=== PATIENT | male | born 1945 ===

== ENCOUNTER 2017-01-28 15:21 | Observation (INO) | payer MEDICARE ==
--- NOTE | 2017-01-28 16:02 | ED PDOC ---
HPI: Psych/Substance Abuse Time Seen by Provider: 01/28/17 15:29 Chief Complaint (Nursing): Alcohol Ingestion Chief Complaint (Provider): Alcohol Ingestion ED Caveat: Intoxicated Additional Complaint(s): 15:29 Azael Navarro, 71 year old male presents to the ED on 01/26/17. The patient was found outside of a school, sleeping on the sidewalk. The patient admits to drinking alcohol. The patient has no other complaints. Past Medical History Reviewed: Historical Data, Nursing Documentation, Vital Signs Vital Signs: Last Vital Signs Temp 98.3 F 01/28/17 15:25 Pulse 114 H 01/28/17 15:25 Resp 20 01/28/17 15:25 BP 148/85 01/28/17 15:25 Pulse Ox 96 01/28/17 15:25 - Medical History PMH: No Chronic Diseases - Family History Family History: States: Unknown Family Hx - Home Medications Home Medications: Ambulatory Orders Medication Instructions Recorded No Known Home Med 01/28/17 - Allergies Allergies/Adverse Reactions: Allergies Allergy/AdvReac Type Severity Reaction Status Date / Time No Known Allergies Allergy Verified 01/28/17 15:25 Review of Systems Review Of Systems: ROS cannot be obtained secondary to pt's inabilty to answer questions. (impaired due to ETOH intoxication) Physical Exam - Reviewed Nursing Documentation Reviewed: Yes Vital Signs Reviewed: Yes - Physical Exam Appears: Positive for: Non-toxic, No Acute Distress Head Exam: Positive for: ATRAUMATIC, NORMOCEPHALIC Skin: Positive for: Normal Color, Warm, Dry Eye Exam: Positive for: Normal appearance ENT: Positive for: Normal ENT Inspection Neck: Positive for: Normal Cardiovascular/Chest: Positive for: Regular Rate, Rhythm Respiratory: Positive for: Normal Breath Sounds. Negative for: Respiratory Distress Neurologic/Psych: Positive for: Motor/Sensory Deficits (slurred speech), Gait ( unsteady), Other (EtOH on breath) - Laboratory Results Result Diagrams: 01/28/17 16:11 01/28/17 16:11 - ECG O2 Sat by Pulse Oximetry: 96 (RA) Pulse Ox Interpretation: Normal Medical Decision Making Medical Decision Makin:29 Initial Impression: Alcohol Intoxication Initial Plan: * Electrocardiogram STAT * Alcohol Serum STAT * COMP Metabolic Panel STAT * Drug Screen, Urine STAT * CBC (with Differential) STAT * Finger Stick [Glucose, Blood, POC] STAT * Admit to Hospital Routine Scribe Attestation: Documented by Nargis Smalls, acting as a scribe for Solis Bajwa PA-C. Provider Scribe Attestation: All medical record entries made by the Scribe were at my direction and personally dictated by me. I have reviewed the chart and agree that the record accurately reflects my personal performance of the history, physical exam, medical decision making, and the department course for this patient. I have also personally directed, reviewed, and agree with the discharge instructions and disposition. ED OBSERVATION Date of observation admission: 01/28/17 Time of observation admission: 15:29 - Observation admission statement Patient is being placed in observation because:: Time-extensive ED evaluation. - Goals of Observation Goals of observation are:: Results of ED workup, Evaluation, Eventual Disposition. - Progress Note Progress Note: 01/28/17 17:14 ETOH 326 01/28/17 18:49 As per technical cable jointer pt. had 1 episode of non-bloody vomiting. Repeat HR: 120. IV line ordered. D-Dimer ordered. CXR ordered. 01/28/17 20:10 D-dimer 1.43. CTA chest w/ contrast ordered. Pt. placed on monitor. 2300 Pt. awake and alert. Reports that he has been having some chest pain for several days but no SOB. Pt. in no distress. Lungs clear b/l. Cardiac: + tachycardic. CTA chest: Evaluation limited due to to technique/timing of imaging. There is no filling defect in the main/central pulmonary arteries. However, lobar/segmental/subsegmental arterial evaluation is limited by technique and there are multiple locations of question of filling defect versus artifact. VQ scan recommended. Case dw Dr. Simmons and agrees with admission. Lovenox 75mg SC given. Case ingrid Cueto [employer] PROGRAM COORDINATOR and arrangements made for admission. Disposition - Clinical Impression Clinical Impression: Chest pain - Patient ED Disposition Is Patient to be Admitted: Yes - Disposition Disposition Time: 23:00 Condition: STABLE
[2017-01-28 16:19] LABS: BASO # 0.1 K/uL (0.0-0.2); BASO % 0.8 % (0.0-2.0); EOS # 0.1 K/uL (0.0-0.7); EOS % 0.5 % (0.0-4.0); HEMOGLOBIN 15.2 g/dL (12.0-18.0); LYMPH # 2.2 K/uL (1.0-4.3); LYMPH % 21.3 % (20.0-40.0); MEAN CELL VOLUME 87.9 fl (80.0-94.0); MEAN CORPUSCULAR HEMOGLOBIN 29.7 pg (27.0-31.0); MEAN CORPUSCULAR HGB CONC 33.7 g/dL (33.0-37.0); MEAN PLATELET VOLUME 6.8 fl (7.2-11.7); MONO # 1.2 K/uL (0.0-0.8); MONO % 11.4 % (0.0-10.0); RBC 5.11 Mil/uL (4.40-5.90); RED CELL DISTRIBUTION WIDTH 14.8 % (11.5-14.5); WHITE BLOOD COUNT 10.6 K/uL (4.8-10.8)
[2017-01-28 16:48] LABS: ALB/GLOB RATIO 1.2 (1.0-2.1); ALBUMIN 3.7 g/dL (3.5-5.0); ALT/SGPT 45 U/L (21-72); AST/SGOT 44 U/L (17-59); BLOOD UREA NITROGEN 14 mg/dl (9-20); CALCIUM 8.6 mg/dL (8.4-10.2); GFR AFRICAN-AMERICAN > 60; GFR NON-AFRICAN AMERICAN > 60
[2017-01-28] MEDS ORDERED: Iodixanol 320 MG/ML 100 ML BOTTLE IV ONE (20:59)
[2017-01-28] MEDS ORDERED: Sodium Chloride 0.9% 50 ML IV ONE (21:00)
--- NOTE | 2017-01-28 21:40 | CT ---
EXAM: CT Angiography Chest With Intravenous Contrast CLINICAL HISTORY: 71 years old, male; Signs and symptoms; Tachypnea and other: Elevated d-dimer; Additional info: Tachycardic, elevated d-dimer. Sent carlee Alcazar. Doc. With request TECHNIQUE: Axial computed tomographic angiography images of the chest with intravenous contrast using pulmonary embolism protocol. This CT exam was performed using one or more of the following dose reduction techniques: automated exposure control, adjustment of the mA and/or kV according to patient size, and/or use of iterative reconstruction technique. MIP reconstructed images were created and reviewed. Coronal and sagittal reformatted images were created and reviewed. CONTRAST: 80 mL of administered intravenously. COMPARISON: No relevant prior studies available. FINDINGS: Pulmonary arteries: Evaluation limited due to to technique/timing of imaging. There is no filling defect in the main/central pulmonary arteries. However, lobar/segmental/subsegmental arterial evaluation is limited by technique and there is question of filling defect versus artifact. For example, involving the left lower lobe, series 3 images 46 through 56. Finding may represent true filling defect/pulmonary embolism. Aorta: Atherosclerosis. No thoracic aortic aneurysm. Lungs: Atelectasis. Granuloma in the right middle lobe. Pleural space: No significant effusion. No pneumothorax. Heart: Top normal in size. No significant pericardial effusion. No evidence of RV dysfunction. Bones: Degenerative changes. Lymph nodes: Shotty nodes. Esophageal wall appears thickened. Likely fatty infiltration of the liver. IMPRESSION: Evaluation limited due to to technique/timing of imaging. There is no filling defect in the main/central pulmonary arteries. However, lobar/segmental/subsegmental arterial evaluation is limited by technique and there are multiple locations of question of filling defect versus artifact. For example, involving the left lower lobe, series 3 images 46 through 56. Finding may represent true filling defect/pulmonary embolism. Further evaluation with nuclear V/Q scan or followup imaging with improved technique when patient is again able to receive contrast will aid in evaluation. Atelectasis. Granuloma in the right middle lobe. Esophageal wall appears thickened. Likely fatty infiltration of the liver.
[2017-01-28] MEDS ORDERED: Enoxaparin 80 mg Syringe SC STA (21:57)
[2017-01-28] MEDS: Sodium Chloride 0.9% 1,000 ML IV SCH (22:55)
[2017-01-29 01:30] LABS: BARBITURATES, UR NEGATIVE (NEGATIVE); BENZODIAZEPINES, UR NEGATIVE (NEGATIVE); OPIATES, UR NEGATIVE (NEGATIVE); PHENCYCLIDINE, UR NEGATIVE (NEGATIVE)
[2017-01-29 07:23] LABS: BASO % 0.5 % (0.0-2.0); EOS # 0.1 K/uL (0.0-0.7); EOS % 0.8 % (0.0-4.0); LYMPH # 2.7 K/uL (1.0-4.3); LYMPH % 30.9 % (20.0-40.0); MEAN CELL VOLUME 87.4 fl (80.0-94.0); MEAN CORPUSCULAR HEMOGLOBIN 29.3 pg (27.0-31.0); MEAN CORPUSCULAR HGB CONC 33.5 g/dL (33.0-37.0); MEAN PLATELET VOLUME 7.2 fl (7.2-11.7); MONO # 0.7 K/uL (0.0-0.8); MONO % 8.4 % (0.0-10.0); NEUT # 5.1 K/uL (1.8-7.0); NEUT % 59.4 % (50.0-75.0); NRBC % 0.1 % (0.0-0.0); RBC 4.77 Mil/uL (4.40-5.90); RED CELL DISTRIBUTION WIDTH 14.9 % (11.5-14.5); WHITE BLOOD COUNT 8.6 K/uL (4.8-10.8)
--- NOTE | 2017-01-29 07:25 | CP.PCM.HP ---
History of Present Illness - History of Present Illness History of Present Illness: pt admitted for tachycardia, dyspnea nad r/o PE. ct chest nonspecific filling deficit noted w/o definite clot. pt states felt these s/s x 1 wk. no f/c, n/v/ d. bw noted. etoh noted. found sleeping infront on [place]. no reported med/surg hx. vqsca nd and ble dopplar and pulm consult pending. pt eating well and in no distress. on lovenox Present on Admission - Present on Admission Any Indicators Present on Admission: No Review of Systems - Respiratory Respiratory: Dyspnea on Exertion Past Patient History - Past Medical History & Family History Past Medical History?: No - Past Social History Smoking Status: Never Smoked - CARDIAC Hx Cardiac Disorders: No - MUSCULOSKELETAL/RHEUMATOLOGICAL Hx Falls: No - PSYCHIATRIC Hx Substance Use: No - SURGICAL HISTORY Hx Surgeries: No - ANESTHESIA Hx Anesthesia: No Hx Anesthesia Reactions: No Hx Malignant Hyperthermia: No Has any member of the family had a problem w/ anesthesia?: No Meds Allergies/Adverse Reactions: Allergies Allergy/AdvReac Type Severity Reaction Status Date / Time No Known Allergies Allergy Verified 01/28/17 15:25 Physical Exam - Constitutional Appears: Well, Non-toxic, No Acute Distress - Head Exam Head Exam: ATRAUMATIC, NORMAL INSPECTION, NORMOCEPHALIC - Eye Exam Eye Exam: EOMI, Normal appearance, PERRL Pupil Exam: NORMAL ACCOMODATION, PERRL - ENT Exam ENT Exam: Mucous Membranes Moist, Normal Exam - Neck Exam Neck exam: Positive for: Normal Inspection - Respiratory Exam Respiratory Exam: Clear to Auscultation Bilateral, NORMAL BREATHING PATTERN - Cardiovascular Exam Cardiovascular Exam: REGULAR RHYTHM, RRR, +S1, +S2 - GI/Abdominal Exam GI & Abdominal Exam: Normal Bowel Sounds, Soft. absent: Tenderness - Extremities Exam Extremities exam: Positive for: full ROM, normal capillary refill, normal inspection, pedal pulses present - Back Exam Back exam: NORMAL INSPECTION - Neurological Exam Neurological exam: Alert, CN II-XII Intact, Normal Gait, Oriented x3, Reflexes Normal - Psychiatric Exam Psychiatric exam: Normal Affect, Normal Mood - Skin Skin Exam: Dry, Intact, Normal Color, Warm Results - Vital Signs Recent Vital Signs: Last Vital Signs Temp 98.8 F 01/29/17 05:01 Pulse 72 01/29/17 05:01 Resp 18 01/29/17 05:01 BP 126/73 01/29/17 05:01 Pulse Ox 95 01/29/17 05:01 - Labs Result Diagrams: 01/29/17 05:25 01/29/17 05:25 Labs: Laboratory Results - last 24 hr 01/29/17 01:09 Urine Opiates Screen Negative Urine Methadone Screen Negative Ur Barbiturates Screen Negative Ur Phencyclidine Scrn Negative Ur Amphetamines Screen Negative U Benzodiazepines Scrn Negative U Oth Cocaine Metabols Negative U Cannabinoids Screen Negative Assessment & Plan (1) Dyspnea on exertion Assessment and Plan: r/o PE lovenox pulm vq scan, venous dopplar Status: Acute (2) Tachycardia Assessment and Plan: dehydration vs pe. ivf f/u all studies. lovenox Status: Acute (3) Alcohol abuse Assessment and Plan: hydration monitor for s/s withdrawal Status: Acute (4) DVT prophylaxis Assessment and Plan: scd and ae hose, lovenox Status: Acute Decision To Admit - Pt Status Changed To: Hospital Disposition Of: Inpatient - Admit Certification Admit to Inpatient:: After my assessment, the patient will require hospitalization for at least two midnights. This is because of the severity of symptoms shown, intensity of services needed, and/or the medical risk in this patient being treated as an outpatient. - . Bed Request Type: Telemetry Admitting Physician: Rene Schmid
[2017-01-29 07:48] LABS: ALB/GLOB RATIO 1.2 (1.0-2.1); ALBUMIN 3.3 g/dL (3.5-5.0); ALT/SGPT 45 U/L (21-72); AST/SGOT 41 U/L (17-59); BLOOD UREA NITROGEN 8 mg/dl (9-20); CALCIUM 8.2 mg/dL (8.4-10.2); GFR AFRICAN-AMERICAN > 60; GFR NON-AFRICAN AMERICAN > 60
--- NOTE | 2017-01-29 08:46 | CARD ---
APPROVED REPORT EKG Measurement Heart [id number] <Conclusion> Sinus tachycardia Otherwise normal ECG
[2017-01-29] MEDS: Enoxaparin 80 mg Syringe SC SCH ×2 (09:36→21:05)
--- NOTE | 2017-01-29 15:06 | NM ---
COMPARISON: 01/28/2017. CT angiogram. TECHNIQUE: 37.0 mCi technetium 99-m DTPA aerosol. 4.72 mCI technetium 99-m MAA administered intravenously. FINDINGS: VENTILATION COMPONENT: Heterogeneous ventilation. PERFUSION COMPONENT: Heterogeneous distribution of radionuclide. No geographic, segmental, lobar abnormalities apparent on the present examination. IMPRESSION: Low probability ventilation perfusion scan for pulmonary embolism.
--- NOTE | 2017-01-29 15:11 | US ---
PROCEDURE: Bilateral lower extremity venous duplex Doppler. HISTORY: pain COMPARISON: None available. TECHNIQUE: Bilateral common femoral, superficial femoral, popliteal and posterior tibial veins were evaluated. Flow was assessed with color Doppler, compressibility, assessment of phasic flow and augmentation response. FINDINGS: COMMON FEMORAL VEIN: Right CFV: Unremarkable. Left CFV: Unremarkable. SUPERFICIAL FEMORAL VEIN: Right SFV: Unremarkable. Left SFV: Unremarkable. POPLITEAL VEIN: Right Popliteal: Unremarkable. Left Popliteal: Unremarkable. POSTERIOR TIBIAL VEIN: Right PTV: Unremarkable. Left PTV: Unremarkable. OTHER FINDINGS: None. IMPRESSION: No evidence of deep venous thrombosis.
[2017-01-29] MEDS: Sodium Chloride 0.9% 1,000 ML IV SCH (16:00)
--- NOTE | 2017-01-29 18:46 | CP.PCM.CON ---
History of Present Illness - History of Present Illness History of Present Illness: CC: R/O PE. Pulmonary consult. 71 y/o M, brought to ER [facility] by EMS for evaluation and management after Pt was found sleeping, lying on the sidewalk in front of [employer] , Pt non verbal, unresponsive associated to alcohol intoxication on DOA with worsening symptoms of vomiting x 1 in ER , EKG + for sinus tachycardia . Patient is a poor historian, He was living in a nursing home , but they founded him with alcohol smelling and there after He was living in street and remaining part of the days in a mandaen He remember He was drinking beer DOA but no other details of what happened. Pt denied: Homicidal or suicidal ideation, fever, chills, n/v/d, abdominal pain , CP, bleeding. Denied any chronic medical condition, not using any medications at home. EKG showed: Sinus tachycardia. CTA Chest; Limited evaluation, could no completely r/o PE, recommended V/Q Scan or to repeat CTA Chest. D Dimer 1,43 , Ext U-S: No DVT. V/Q Lung Scan shows: Low probability perfusion scan for PE. Review of Systems - Constitutional Constitutional: Other (negative) - EENT Eyes: Other (negative) Ears: Other (negative) Nose/Mouth/Throat: Other (negative) - Cardiovascular Cardiovascular: Rapid Heart Rate - Respiratory Respiratory: Other (negative) - Gastrointestinal Gastrointestinal: Other (negative) - Genitourinary Genitourinary: Other (negative) - Musculoskeletal Musculoskeletal: Other (negative) - Integumentary Integumentary: Other (negative) - Neurological Neurological: Confusion - Psychiatric Psychiatric: Confusion - Endocrine Endocrine: Other (negative) - Hematologic/Lymphatic Hematologic: Other (negative) Past Patient History - Past Medical History & Family History Past Medical History?: No Pertinent Family History: Unknown - Past Social History Smoking Status: Never Smoked Alcohol: Other (alcohol abuse) Drugs: Denies Home Situation {Lives}: Other - CARDIAC Hx Cardiac Disorders: No - PULMONARY Hx Respiratory Disorders: No - NEUROLOGICAL Hx Neurological Disorder: No - HEENT Hx HEENT Problems: No - RENAL Hx Chronic Kidney Disease: No - ENDOCRINE/METABOLIC Hx Endocrine Disorders: No - HEMATOLOGICAL/ONCOLOGICAL Hx Blood Disorders: No - INTEGUMENTARY Hx Dermatological Problems: No - MUSCULOSKELETAL/RHEUMATOLOGICAL Hx Musculoskeletal Disorders: No Hx Falls: No - GASTROINTESTINAL Hx Gastrointestinal Disorders: No - GENITOURINARY/GYNECOLOGICAL Hx Genitourinary Disorders: No - PSYCHIATRIC Hx Psychophysiologic Disorder: No Hx Substance Use: No Other/Comment: Alcohol abuse. - SURGICAL HISTORY Hx Surgeries: No - ANESTHESIA Hx Anesthesia: No Hx Anesthesia Reactions: No Hx Malignant Hyperthermia: No Has any member of the family had a problem w/ anesthesia?: No Meds Allergies/Adverse Reactions: Allergies Allergy/AdvReac Type Severity Reaction Status Date / Time No Known Allergies Allergy Verified 01/28/17 15:25 - Medications Medications: Current Medications Enoxaparin Sodium (Lovenox) 80 mg SC Q12 [facility] PRN Reason: Protocol Last Admin: 01/29/17 09:36 Dose: 80 mg Sodium Chloride (Sodium Chloride 0.9%) 1,000 mls @ 125 mls/hr IV .Q8H [facility] Stop: 01/29/17 22:40 Last Admin: 01/29/17 16:00 Dose: 125 mls/hr Physical Exam - Constitutional Appears: No Acute Distress - Head Exam Head Exam: NORMAL INSPECTION - Eye Exam Eye Exam: PERRL - ENT Exam ENT Exam: Normal Oropharynx - Neck Exam Neck exam: Positive for: Normal Inspection - Respiratory Exam Respiratory Exam: NORMAL BREATHING PATTERN Additional comments: Tenderness L SB and R scapular. - Cardiovascular Exam Cardiovascular Exam: REGULAR RHYTHM - GI/Abdominal Exam GI & Abdominal Exam: Normal Bowel Sounds, Soft - Extremities Exam Extremities exam: Positive for: normal inspection - Back Exam Back exam: NORMAL INSPECTION - Neurological Exam Neurological exam: Alert, Oriented x3 Additional comments: Mild confused, No motor sensory deficit. - Psychiatric Exam Additional comments: Mild confused - Skin Skin Exam: Warm Results - Vital Signs Recent Vital Signs: Last Vital Signs Temp 98.5 F 01/29/17 16:04 Pulse 92 H 01/29/17 16:04 Resp 18 01/29/17 16:04 BP 161/71 H 01/29/17 16:04 Pulse Ox 98 01/29/17 16:04 anuradha Isbell - Labs Result Diagrams: 01/30/17 05:30 01/30/17 05:30 Labs: Laboratory Results - last 24 hr 01/29/17 01/29/17 01/29/17 01:09 05:25 05:25 WBC 8.6 RBC 4.77 Hgb 14.0 Hct 41.7 MCV 87.4 MCH 29.3 MCHC 33.5 RDW 14.9 H Plt Count 239 MPV 7.2 Neut % (Auto) 59.4 Lymph % (Auto) 30.9 Hutchinson % (Auto) 8.4 Eos % (Auto) 0.8 Baso % (Auto) 0.5 Neut # 5.1 Lymph # 2.7 Hutchinson # 0.7 Eos # 0.1 Baso # 0.0 Sodium 140 Potassium 3.5 L Chloride 104 Carbon Dioxide 25 Anion Gap 15 BUN 8 L Creatinine 0.7 L Est GFR ( Amer) > 60 Est GFR (Non-Af Amer) > 60 Random Glucose 93 Calcium 8.2 L Total Bilirubin 0.6 AST 41 ALT 45 Alkaline Phosphatase 104 Troponin I Total Protein 6.0 L Albumin 3.3 L Globulin 2.8 Albumin/Globulin Ratio 1.2 Urine Opiates Screen Negative Urine Methadone Screen Negative Ur Barbiturates Screen Negative Ur Phencyclidine Scrn Negative Ur Amphetamines Screen Negative U Benzodiazepines Scrn Negative U Oth Cocaine Metabols Negative U Cannabinoids Screen Negative 01/29/17 15:22 WBC RBC Hgb Hct MCV MCH MCHC RDW Plt Count MPV Neut % (Auto) Lymph % (Auto) Hutchinson % (Auto) Eos % (Auto) Baso % (Auto) Neut # Lymph # Hutchinson # Eos # Baso # Sodium Potassium Chloride Carbon Dioxide Anion Gap BUN Creatinine Est GFR ( Amer) Est GFR (Non-Af Amer) Random Glucose Calcium Total Bilirubin AST ALT Alkaline Phosphatase Troponin I 0.0140 Total Protein Albumin Globulin Albumin/Globulin Ratio Urine Opiates Screen Urine Methadone Screen Ur Barbiturates Screen Ur Phencyclidine Scrn Ur Amphetamines Screen U Benzodiazepines Scrn U Oth Cocaine Metabols U Cannabinoids Screen reviewed J.P. - EKG Data EKG comments: reviewed J.P. - Imaging and Cardiology CT scan - chest Status: Report reviewed by me (J.P.) Additional comment: V/Q Lung Scan Reviewed J.P. Assessment & Plan (1) Alcohol abuse Status: Acute Priority: High (2) HTN (hypertension) Status: Acute (3) Tachycardia Status: Acute - Assessment and Plan (Free Text) Plan: CTA Chest could not completely r/o PE, Doppler L/E negative, V/Q Lung Scan negative, low probability of PE, but has low sensitivity, suggest to repeat CT Chest, also Echo to assess Cardiac function, continue Lovenox. - Date & Time Date: 01/29/17 Time: 18:00
[2017-01-30 08:03] LABS: BASO % 0.6 % (0.0-2.0); EOS # 0.1 K/uL (0.0-0.7); EOS % 2.1 % (0.0-4.0); HEMOGLOBIN 15.1 g/dL (12.0-18.0); LYMPH # 1.6 K/uL (1.0-4.3); LYMPH % 25.2 % (20.0-40.0); MEAN CELL VOLUME 87.8 fl (80.0-94.0); MEAN CORPUSCULAR HEMOGLOBIN 29.8 pg (27.0-31.0); MEAN CORPUSCULAR HGB CONC 33.9 g/dL (33.0-37.0); MEAN PLATELET VOLUME 7.6 fl (7.2-11.7); MONO # 0.7 K/uL (0.0-0.8); MONO % 11.7 % (0.0-10.0); NEUT # 3.9 K/uL (1.8-7.0); NEUT % 60.4 % (50.0-75.0); NRBC % 0.1 % (0.0-0.0); RBC 5.07 Mil/uL (4.40-5.90); RED CELL DISTRIBUTION WIDTH 14.9 % (11.5-14.5); WHITE BLOOD COUNT 6.4 K/uL (4.8-10.8)
[2017-01-30 08:06] VITALS: RESP 18
[2017-01-30 08:18] LABS: ALBUMIN 3.4 g/dL (3.5-5.0); ALT/SGPT 43 U/L (21-72); AST/SGOT 38 U/L (17-59); BLOOD UREA NITROGEN 6 mg/dl (9-20); GFR AFRICAN-AMERICAN > 60; GFR NON-AFRICAN AMERICAN > 60
[2017-01-30 08:19] LABS: ALB/GLOB RATIO 1.1 (1.0-2.1)
[2017-01-30 08:29] LABS: INR 1.06 (0.92-1.08); PARTIAL THROMBOPLASTIN TIME 32.5 SECONDS (23.3-32.5)
--- NOTE | 2017-01-30 09:48 | CARD ---
APPROVED REPORT EXAM: Two-dimensional and M-mode echocardiogram with Doppler and color Doppler. Other Information Quality : GoodRhythm : NSR INDICATION Dyspnea 2D DIMENSIONS IVSd1.22 (0.7-1.1cm)LVDd4.43 (3.9-5.9cm) LVOT Diameter2.28 (1.8-2.4cm)PWd1.11 (0.7-1.1cm) IVSs1.29 (0.8-1.2cm)LVDs3.23 (2.5-4.0cm) FS (%) 27.0 %PWs0.96 (0.8-1.2cm) M-Mode DIMENSIONS Left Atrium (MM)4.38 (2.5-4.0cm)IVSd0.91 (0.7-1.1cm) Aortic Root3.09 (2.2-3.7cm)LVDd5.66 (4.0-5.6cm) Aortic Cusp Exc.2.13 (1.5-2.0cm)PWd1.03 (0.7-1.1cm) IVSs1.97 cmFS (%) 67 % LVDs1.88 (2.0-3.8cm)PWs2.06 cm Mitral Valve MV E Rrcxgngo57.3cm/sMV DECEL [id number] A Gthewkng91.4cm/s MV [id number]/A ratio1.0MVA (PHT)3.10cm2 TDI Lateral E' Peak V8.88cm/sMedial E' Peak V7.66cm/sE/Lateral E'7.9 E/Medial E'9.2 Pulmonary Valve PV Peak Dgkyvbel676.9cm/s LEFT VENTRICLE The left ventricle is normal size. There is normal left ventricular wall thickness. The left ventricular function is normal. The left ventricular ejection fraction is within the normal range. The Ejection Fraction is 65-70%. There is normal LV segmental wall motion. The left ventricular diastolic function is normal. No left ventricle thrombus noted on this study. There is no mass noted in the left ventricle. RIGHT VENTRICLE The right ventricle is normal size. There is normal right ventricular wall thickness. The right ventricular systolic function is normal. ATRIA The left atrium size is normal. The right atrium size is normal. The interatrial septum is intact with no evidence for an atrial septal defect. AORTIC VALVE The aortic valve is normal in structure and function. No aortic regurgitation is present. There is no aortic valvular stenosis. There is no aortic valvular vegetation. MITRAL VALVE The mitral valve is normal in structure and function. There is no evidence of mitral valve prolapse. There is no mitral valve stenosis. There is no mitral valve regurgitation noted. TRICUSPID VALVE The tricuspid valve is normal in structure and function. There is no tricuspid valve regurgitation noted. There is no tricuspid valve prolapse or vegetation. There is no tricuspid valve stenosis. PULMONIC VALVE The pulmonary valve is normal in structure and function. There is no pulmonic valvular regurgitation. There is no pulmonic valvular stenosis. GREAT VESSELS The aortic root is normal in size. The IVC is normal in size and collapses >50% with inspiration. PERICARDIAL EFFUSION The pericardium appears normal. There is no pleural effusion. <Conclusion> The left ventricle is normal size. The left ventricular function is normal. The left ventricular ejection fraction is within the normal range. The Ejection Fraction is 65-70%.
[2017-01-30] MEDS: Enoxaparin 80 mg Syringe SC SCH (09:49)
[2017-01-30] MEDS ORDERED: Sodium Chloride 0.9% 50 ML IV ONE (09:55)
[2017-01-30] MEDS ORDERED: Iodixanol 320 MG/ML 100 ML BOTTLE IV ONE (09:55)
--- NOTE | 2017-01-30 10:43 | CP.PCM.PN ---
Subjective - Date & Time of Evaluation Date of Evaluation: 01/30/17 Time of Evaluation: 10:43 - Subjective Subjective: pt comforatble in bed. no pain.didstress/sob. no f/c, n/v/d. pending repeat ct chest/echo report. on lovenox. vq/venous dopplar negative. pulm consult appriciated. Objective - Vital Signs/Intake and Output Vital Signs (last 24 hours): Temp Pulse Resp BP Pulse Ox 98.5 F 76 18 122/89 95 01/30/17 08:05 01/30/17 09:00 01/30/17 08:05 01/30/17 08:05 01/30/17 08:05 - Medications Medications: Current Medications Acetaminophen (Tylenol 325mg Tab) 650 mg PO Q4 PRN PRN Reason: Pain, severe (8-10) Last Admin: 01/30/17 09:48 Dose: 650 mg Enoxaparin Sodium (Lovenox) 80 mg SC Q12 [facility] PRN Reason: Protocol Last Admin: 01/30/17 09:49 Dose: 80 mg - Labs Labs: 01/30/17 05:30 01/30/17 05:30 PT 11.0 SECONDS (9.6-11.2) 01/30/17 05:30 INR 1.06 (0.92-1.08) 01/30/17 05:30 APTT 32.5 SECONDS (23.3-32.5) 01/30/17 05:30 - Constitutional Appears: Well, Non-toxic, No Acute Distress - Head Exam Head Exam: ATRAUMATIC, NORMAL INSPECTION, NORMOCEPHALIC - Eye Exam Eye Exam: EOMI, Normal appearance, PERRL Pupil Exam: NORMAL ACCOMODATION, PERRL - ENT Exam ENT Exam: Mucous Membranes Moist, Normal Exam - Neck Exam Neck Exam: Full ROM, Normal Inspection. absent: Lymphadenopathy - Respiratory Exam Respiratory Exam: Clear to Ausculation Bilateral, NORMAL BREATHING PATTERN - Cardiovascular Exam Cardiovascular Exam: REGULAR RHYTHM, RRR, +S1, +S2. absent: Murmur - GI/Abdominal Exam GI & Abdominal Exam: Soft, Normal Bowel Sounds. absent: Tenderness - Extremities Exam Extremities Exam: Full ROM, Normal Capillary Refill, Normal Inspection. absent : Joint Swelling, Pedal Edema - Back Exam Back Exam: NORMAL INSPECTION - Neurological Exam Neurological Exam: Alert, Awake, CN II-XII Intact, Normal Gait, Oriented x3 - Psychiatric Exam Psychiatric exam: Normal Affect, Normal Mood - Skin Skin Exam: Dry, Intact, Normal Color, Warm Assessment and Plan (1) Dyspnea on exertion Status: Acute (2) Tachycardia Status: Acute (3) Alcohol abuse Status: Acute (4) DVT prophylaxis Status: Acute - Assessment and Plan (Free Text) Assessment: (1) Dyspnea on exertion Assessment and Plan: r/o PE lovenox pulm vq scan-neg, venous dopplar-neg echo-adrian repeat ct-negative Status: Acute (2) Tachycardia Assessment and Plan: dehydration vs pe. ivf f/u all studies. lovenox trops negative Status: Acute (3) Alcohol abuse Assessment and Plan: hydration monitor for s/s withdrawal Status: Acute (4) DVT prophylaxis Assessment and Plan: scd and ae sophia rubio Status: Acute ?? dc today/tomorrow
--- NOTE | 2017-01-30 11:22 | CT ---
PROCEDURE: CT Chest with contrast (Pulmonary Angiogram) HISTORY: r/o pe COMPARISON: None available. TECHNIQUE: Axial computed tomography images were obtained of the chest in the pulmonary arterial phase of enhancement. Coronal and sagittal reformatted images were created and reviewed. Intravenous contrast dose: 95 millimeters visi opaque 320 Radiation dose: Total exam DLP = 432 mGy-cm. This CT exam was performed using one or more of the following dose reduction techniques: Automated exposure control, adjustment of the mA and/or kV according to patient size, and/or use of iterative reconstruction technique. FINDINGS: PULMONARY ARTERIES: No appreciable filling defects are seen within the pulmonary arteries including subsegmental pulmonary arteries. There is no CT scan evidence of pulmonary embolism on this examination. AORTA: No intimal flap is seen in the aorta. No significant aneurysmal dilatation is noted. Minor atherosclerotic changes are noted. LUNGS: There is once again evidence of bilateral posterior lower lobe subsegmental atelectasis. This is mildly improved from prior examination especially at the right lung base. Small calcified granuloma is seen in the right lung, unchanged. No new infiltrates are seen. Minor atelectasis is also seen in the lingula. PLEURAL SPACES: Unremarkable. No effusion or pneuomothorax. HEART: Unremarkable. No cardiomegaly. No significant pericardial effusion. LYMPH NODES: No mediastinal adenopathy is seen. No hilar adenopathy is noted. BONES, CHEST WALL: Unremarkable. No fracture or destructive lesion OTHER FINDINGS: There is stable appearance of the thyroid gland with some mild asymmetric enlargement of the left lobe. IMPRESSION: No CT scan evidence of pulmonary embolism. Mild interval improvement in aeration at the lung bases with some mild persistent subsegmental atelectasis.
[2017-01-30 15:48] VITALS: BP 156/72; PULSE 83; TEMP 97.8; O2SAT 97
--- NOTE | 2017-01-30 17:20 | CP.PCM.CON ---
History of Present Illness - History of Present Illness History of Present Illness: I was asked to evaluate patient by Dr Schmid and Davis Cueto APN Patient is a 71 year old male with PMH HTN who presents after a fall. The patient states he was drinking and was found on the floor. The patient has noted dyspnea, but felt dizzy after dringkng. He was fount to be tachycardic. He had CT scan which were negative for PE. The patient has negative troponin level. Review of Systems - Constitutional Constitutional: absent: As Per HPI, Anorexia, Chills, Daytime Sleepiness, Excessive Sweating, Fatigue, Fever, Frequent Falls, Headache, Increased Appetite , Lethargy, Malaise, Night Sweats, Snoring, Sleep Apnea, Weight Gain, Weight Loss, Weakness, Other - EENT Eyes: absent: As Per HPI, Blind Spots, Blurred Vision, Change in Vision, Decreased Night Vision, Diplopia, Discharge, Dry Eye, Exophthalmos, Floaters, Irritation, Itchy Eyes, Loss of Peripheral Vision, Pain, Photophobia, Requires Corrective Lenses, Sees Flashes, Spots in Vision, Tunnel Vision, Other Visual Disturbances, Loss of Vision, Other Ears: absent: As Per HPI, Decreased Hearing, Ear Discharge, Ear Pain, Tinnitus, Abnormal Hearing, Disequilibrium, Dizziness, Other Nose/Mouth/Throat: absent: As Per HPI, Epistaxis, Nasal Congestion, Nasal Discharge, Nasal Obstruction, Nasal Trauma, Nose Pain, Post Nasal Drip, Sinus Pain, Sinus Pressure, Bleeding Gums, Change in Voice, Dental Pain, Dry Mouth, Dysphagia, Halitosis, Hoarsness, Lip Swelling, Mouth Lesions, Mouth Pain, Odynophagia, Sore Throat, Throat Swelling, Tongue Swelling, Facial Pain, Neck Pain, Neck Mass, Other - Cardiovascular Cardiovascular: absent: As Per HPI, Acrocyanosis, Chest Pain, Chest Pain at Rest , Chest Pain with Activity, Claudication, Diaphoresis, Dyspnea, Dyspnea on Exertion, Edema, Irregular Heart Rhythm, Pain Radiating to Arm/Neck/Jaw, Leg Edema, Leg Ulcers, Lightheadedness, Orthopnea, Palpitations, Paroxysmal Nocturnal Dyspnea, Pedal Edema, Radiating Pain, Rapid Heart Rate, Slow Heart Rate, Syncope, Other - Respiratory Respiratory: absent: As Per HPI, Cough, Dyspnea, Hemoptysis, Dyspnea on Exertion , Wheezing, Snoring, Stridor, Pain on Inspiration, Chest Congestion, Excessive Mucous Production, Change in Mucous Color, Pain with Coughing, Other - Gastrointestinal Gastrointestinal: absent: As Per HPI, Abdominal Pain, Belching, Bloating, Change in Bowel Habits, Change in Stool Character, Coffee Ground Emesis, Constipation, Cramping, Diarrhea, Dyspepsia, Dysphagia, Early Satiety, Excessive Flatus, Fecal Incontinence, Heartburn, Hematemesis, Hematochezia, Loose Stools, Melena, Nausea, Odynophagia, Temesmus, Vomiting, Other - Genitourinary Genitourinary: absent: As Per HPI, Change in Urinary Stream, Difficulty Urinating, Dysuria, Flank Pain, Hematuria, Pyuria, Nocturia, Urinary Incontinence, Urinary Frequency, Urinary Hesitance, Urinary Urgency, Voiding Freq/Small Amts, Freq UTI, Hx Renal/Bladder Calculi, Hx /Renal Surgery, Bladder Distension, Other - Musculoskeletal Musculoskeletal: absent: As Per HPI, Abnormal Gait, Arthralgias, Atrophy, Back Pain, Deformity, Joint Swelling, Limited Range of Motion, Loss of Height, Muscle Cramps, Muscle Weakness, Myalgias, Neck Pain, Numbness, Radiating Pain into Limb, Stiffness, Tingling, Other - Integumentary Integumentary: absent: As Per HPI, Acne, Alopecia, Bleeding Lesions, Change in Hair, Change in Nails, Change in Pigmentation, Changing Lesions, Dry Skin, Erythema, Furuncle, Hirsutism, Lesions, New Lesions, Non-Healing Lesions, Photosensitivity, Pruritus, Rash, Skin Pain, Skin Ulcer, Sores, Striae, Swelling , Unusual Bruising, Wounds, Jaundice, Other - Neurological Neurological: absent: As Per HPI, Abnormal Gait, Abnormal Hearing, Abnormal Movements, Abnormal Speech, Behavioral Changes, Burning Sensations, Confusion, Convulsions, Disequilibrium, Dizziness, Numbness, Focal Weakness, Frequent Falls , Headaches, Lack of Coordination, Loss of Vision, Memory Loss, Paresthesias, Radicular Pain, Restless Legs, Sensory Deficit, Syncope, Tingling, Tremor, Vertigo, Weakness, Other Visual Disturbances, Other - Psychiatric Psychiatric: absent: As Per HPI, Abnormal Sleep Pattern, Anhedonia, Anxiety, Auditory Hallucinations, Behavioral Changes, Change in Appetite, Change in Libido, Confusion, Depression, Difficulty Concentrating, Hallucinations, Homicidal Ideation, Hopelessness, Irritability, Memory Loss, Mood Swings, Panic Attacks, Paranoia, Suicidal Ideation, Visual Hallucinations, Tactile Hallucinations, Other - Endocrine Endocrine: absent: As Per HPI, Change in Body Appearance, Change in Libido, Cold Intolorance, Deepening of Voice, Excessive Sweating, Fatigue, Flushing, Heat Intolorance, Increase in Ring/Shoe/Hat Size, Palpitations, Polydipsia, Polyphagia, Polyuria, Other - Hematologic/Lymphatic Hematologic: absent: As Per HPI, Easy Bleeding, Easy Bruising, Lymphadenopathy, Other Past Patient History - Past Medical History & Family History Past Medical History?: No - Past Social History Smoking Status: Never Smoked Alcohol: Other (alcohol abuse) Drugs: Denies Home Situation {Lives}: Other - CARDIAC Hx Cardiac Disorders: No - PULMONARY Hx Respiratory Disorders: No - NEUROLOGICAL Hx Neurological Disorder: No - HEENT Hx HEENT Problems: No - RENAL Hx Chronic Kidney Disease: No - ENDOCRINE/METABOLIC Hx Endocrine Disorders: No - HEMATOLOGICAL/ONCOLOGICAL Hx Blood Disorders: No - INTEGUMENTARY Hx Dermatological Problems: No - MUSCULOSKELETAL/RHEUMATOLOGICAL Hx Musculoskeletal Disorders: No Hx Falls: No - GASTROINTESTINAL Hx Gastrointestinal Disorders: No - GENITOURINARY/GYNECOLOGICAL Hx Genitourinary Disorders: No - PSYCHIATRIC Hx Psychophysiologic Disorder: No Hx Substance Use: No Other/Comment: Alcohol abuse. - SURGICAL HISTORY Hx Surgeries: No - ANESTHESIA Hx Anesthesia: No Hx Anesthesia Reactions: No Hx Malignant Hyperthermia: No Has any member of the family had a problem w/ anesthesia?: No Meds Home Medications: Home Medication List Medication Instructions Recorded Confirmed Type Aspirin [Adult Low Dose Aspirin EC] 81 mg PO DAILY #30 tablet. 01/30/17 Rx Allergies/Adverse Reactions: Allergies Allergy/AdvReac Type Severity Reaction Status Date / Time No Known Allergies Allergy Verified 01/28/17 15:25 - Medications Medications: Current Medications Acetaminophen (Tylenol 325mg Tab) 650 mg PO Q4 PRN PRN Reason: Pain, severe (8-10) Last Admin: 01/30/17 09:48 Dose: 650 mg Enoxaparin Sodium (Lovenox) 80 mg SC Q12 ELDA PRN Reason: Protocol Last Admin: 01/30/17 09:49 Dose: 80 mg Physical Exam - Constitutional Appears: Non-toxic - Head Exam Head Exam: NORMAL INSPECTION - Eye Exam Eye Exam: Normal appearance - ENT Exam ENT Exam: Mucous Membranes Moist - Neck Exam Neck exam: Positive for: Full Rom - Respiratory Exam Respiratory Exam: NORMAL BREATHING PATTERN - Cardiovascular Exam Cardiovascular Exam: REGULAR RHYTHM - GI/Abdominal Exam GI & Abdominal Exam: Normal Bowel Sounds - Rectal Exam Rectal Exam: Deferred - Extremities Exam Extremities exam: Positive for: pedal edema - Back Exam Back exam: NORMAL INSPECTION - Neurological Exam Neurological exam: Alert, Oriented x3 - Psychiatric Exam Psychiatric exam: Normal Affect Results - Vital Signs Recent Vital Signs: Last Vital Signs Temp 97.8 F 01/30/17 15:47 Pulse 83 01/30/17 15:47 Resp 18 01/30/17 15:47 BP 156/72 H 01/30/17 15:47 Pulse Ox 97 01/30/17 15:47 - Labs Result Diagrams: 01/30/17 05:30 01/30/17 05:30 Labs: Laboratory Results - last 24 hr 01/30/17 01/30/17 01/30/17 05:30 05:30 05:30 WBC 6.4 RBC 5.07 Hgb 15.1 Hct 44.5 MCV 87.8 MCH 29.8 MCHC 33.9 RDW 14.9 H Plt Count 245 MPV 7.6 Neut % (Auto) 60.4 Lymph % (Auto) 25.2 [place] % (Auto) 11.7 H Eos % (Auto) 2.1 Baso % (Auto) 0.6 Neut # 3.9 Lymph # 1.6 Gordon # 0.7 Eos # 0.1 Baso # 0.0 PT 11.0 INR 1.06 APTT 32.5 Sodium 140 Potassium 3.7 Chloride 105 Carbon Dioxide 27 Anion Gap 11 BUN 6 L Creatinine 0.7 L Est GFR ( Amer) > 60 Est GFR (Non-Af Amer) > 60 Random Glucose 98 Calcium 9.0 Total Bilirubin 1.1 AST 38 ALT 43 Alkaline Phosphatase 104 Total Protein 6.4 Albumin 3.4 L Globulin 3.0 Albumin/Globulin Ratio 1.1 - EKG Data EKG Interpreted by: Myself Assessment & Plan (1) Dyspnea on exertion Assessment and Plan: CT scan negative for PE. asymptomatic at presents. recommend medical therapy. stable for discharge. Status: Acute (2) HTN (hypertension) Assessment and Plan: control blood pressure Status: Acute (3) Tachycardia Assessment and Plan: resolved Status: Acute
--- NOTE | 2017-01-30 18:47 | CP.PCM.PN ---
Objective - Vital Signs/Intake and Output Vital Signs (last 24 hours): Temp Pulse Resp BP Pulse Ox 97.8 F 83 18 156/72 H 97 01/30/17 15:47 01/30/17 15:47 01/30/17 15:47 01/30/17 15:47 01/30/17 15:47 - Medications Medications: Current Medications Acetaminophen (Tylenol 325mg Tab) 650 mg PO Q4 PRN PRN Reason: Pain, severe (8-10) Last Admin: 01/30/17 09:48 Dose: 650 mg Enoxaparin Sodium (Lovenox) 80 mg SC Q12 ELDA PRN Reason: Protocol Last Admin: 01/30/17 09:49 Dose: 80 mg - Labs Labs: 01/30/17 05:30 01/30/17 05:30 PT 11.0 SECONDS (9.6-11.2) 01/30/17 05:30 INR 1.06 (0.92-1.08) 01/30/17 05:30 APTT 32.5 SECONDS (23.3-32.5) 01/30/17 05:30 Assessment and Plan (1) Alcohol abuse Status: Acute (2) HTN (hypertension) Status: Acute (3) Tachycardia Status: Acute
--- NOTE | 2017-01-30 18:51 | CP.PCM.CON ---
Past Patient History - Past Medical History & Family History Past Medical History?: No - Past Social History Smoking Status: Never Smoked Alcohol: Other (alcohol abuse) Drugs: Denies Home Situation {Lives}: Other - CARDIAC Hx Cardiac Disorders: No - PULMONARY Hx Respiratory Disorders: No - NEUROLOGICAL Hx Neurological Disorder: No - HEENT Hx HEENT Problems: No - RENAL Hx Chronic Kidney Disease: No - ENDOCRINE/METABOLIC Hx Endocrine Disorders: No - HEMATOLOGICAL/ONCOLOGICAL Hx Blood Disorders: No - INTEGUMENTARY Hx Dermatological Problems: No - MUSCULOSKELETAL/RHEUMATOLOGICAL Hx Musculoskeletal Disorders: No Hx Falls: No - GASTROINTESTINAL Hx Gastrointestinal Disorders: No - GENITOURINARY/GYNECOLOGICAL Hx Genitourinary Disorders: No - PSYCHIATRIC Hx Psychophysiologic Disorder: No Hx Substance Use: No Other/Comment: Alcohol abuse. - SURGICAL HISTORY Hx Surgeries: No - ANESTHESIA Hx Anesthesia: No Hx Anesthesia Reactions: No Hx Malignant Hyperthermia: No Has any member of the family had a problem w/ anesthesia?: No Meds Home Medications: Home Medication List Medication Instructions Recorded Confirmed Type Aspirin [Adult Low Dose Aspirin EC] 81 mg PO DAILY #30 tablet. 01/30/17 Rx Allergies/Adverse Reactions: Allergies Allergy/AdvReac Type Severity Reaction Status Date / Time No Known Allergies Allergy Verified 01/28/17 15:25 - Medications Medications: Current Medications Acetaminophen (Tylenol 325mg Tab) 650 mg PO Q4 PRN PRN Reason: Pain, severe (8-10) Last Admin: 01/30/17 09:48 Dose: 650 mg Enoxaparin Sodium (Lovenox) 80 mg SC Q12 ELDA PRN Reason: Protocol Last Admin: 01/30/17 09:49 Dose: 80 mg Results - Vital Signs Recent Vital Signs: Last Vital Signs Temp 97.8 F 01/30/17 15:47 Pulse 83 01/30/17 15:47 Resp 18 01/30/17 15:47 BP 156/72 H 01/30/17 15:47 Pulse Ox 97 01/30/17 15:47 - Labs Result Diagrams: 01/30/17 05:30 01/30/17 05:30 Labs: Laboratory Results - last 24 hr 01/30/17 01/30/17 01/30/17 05:30 05:30 05:30 WBC 6.4 RBC 5.07 Hgb 15.1 Hct 44.5 MCV 87.8 MCH 29.8 MCHC 33.9 RDW 14.9 H Plt Count 245 MPV 7.6 Neut % (Auto) 60.4 Lymph % (Auto) 25.2 [place] % (Auto) 11.7 H Eos % (Auto) 2.1 Baso % (Auto) 0.6 Neut # 3.9 Lymph # 1.6 [place] # 0.7 Eos # 0.1 Baso # 0.0 PT 11.0 INR 1.06 APTT 32.5 Sodium 140 Potassium 3.7 Chloride 105 Carbon Dioxide 27 Anion Gap 11 BUN 6 L Creatinine 0.7 L Est GFR ( Amer) > 60 Est GFR (Non-Af Amer) > 60 Random Glucose 98 Calcium 9.0 Total Bilirubin 1.1 AST 38 ALT 43 Alkaline Phosphatase 104 Total Protein 6.4 Albumin 3.4 L Globulin 3.0 Albumin/Globulin Ratio 1.1 Assessment & Plan (1) Alcohol abuse Status: Acute Priority: High (2) HTN (hypertension) Status: Acute (3) Tachycardia Status: Acute
--- NOTE | 2017-01-30 20:58 | CP.PCM.DIS ---
Provider - Provider Date of Admission: 01/28/17 22:13 Attending physician: Rene Schmid MD Time Spent in preparation of Discharge (in minutes): 15 Diagnosis - Discharge Diagnosis (1) Dyspnea on exertion Status: Acute (2) Tachycardia Status: Acute (3) Alcohol abuse Status: Acute Priority: High (4) DVT prophylaxis Status: Acute Hospital Course - Lab Results Lab Results: Most Recent Lab Values WBC 6.4 K/uL (4.8-10.8) 01/30/17 05:30 RBC 5.07 Mil/uL (4.40-5.90) 01/30/17 05:30 Hgb 15.1 g/dL (12.0-18.0) 01/30/17 05:30 Hct 44.5 % (35.0-51.0) 01/30/17 05:30 MCV 87.8 fl (80.0-94.0) 01/30/17 05:30 MCH 29.8 pg (27.0-31.0) 01/30/17 05:30 MCHC 33.9 g/dL (33.0-37.0) 01/30/17 05:30 RDW 14.9 % (11.5-14.5) H 01/30/17 05:30 Plt Count 245 K/uL (130-400) 01/30/17 05:30 MPV 7.6 fl (7.2-11.7) 01/30/17 05:30 Neut % (Auto) 60.4 % (50.0-75.0) 01/30/17 05:30 Lymph % (Auto) 25.2 % (20.0-40.0) 01/30/17 05:30 [place] % (Auto) 11.7 % (0.0-10.0) H 01/30/17 05:30 Eos % (Auto) 2.1 % (0.0-4.0) 01/30/17 05:30 Baso % (Auto) 0.6 % (0.0-2.0) 01/30/17 05:30 Neut # 3.9 K/uL (1.8-7.0) 01/30/17 05:30 Lymph # 1.6 K/uL (1.0-4.3) 01/30/17 05:30 [place] # 0.7 K/uL (0.0-0.8) 01/30/17 05:30 Eos # 0.1 K/uL (0.0-0.7) 01/30/17 05:30 Baso # 0.0 K/uL (0.0-0.2) 01/30/17 05:30 PT 11.0 SECONDS (9.6-11.2) 01/30/17 05:30 INR 1.06 (0.92-1.08) 01/30/17 05:30 APTT 32.5 SECONDS (23.3-32.5) 01/30/17 05:30 D-Dimer, Quantitative 1.43 mg/L FEU (0-0.50) H 01/28/17 19:00 Sodium 140 mmol/l (132-148) 01/30/17 05:30 Potassium 3.7 MMOL/L (3.6-5.0) 01/30/17 05:30 Chloride 105 mmol/L (98-107) 01/30/17 05:30 Carbon Dioxide 27 mmol/L (22-30) 01/30/17 05:30 Anion Gap 11 (10-20) 01/30/17 05:30 BUN 6 mg/dl (9-20) L 01/30/17 05:30 Creatinine 0.7 mg/dL (0.8-1.5) L 01/30/17 05:30 Est GFR ( Amer) > 60 01/30/17 05:30 Est GFR (Non-Af Amer) > 60 01/30/17 05:30 POC Glucose (mg/dL) 94 mg/dL (65-110) 01/28/17 15:57 Random Glucose 98 mg/dL (75-110) 01/30/17 05:30 Calcium 9.0 mg/dL (8.4-10.2) 01/30/17 05:30 Total Bilirubin 1.1 mg/dl (0.2-1.3) 01/30/17 05:30 AST 38 U/L (17-59) 01/30/17 05:30 ALT 43 U/L (21-72) 01/30/17 05:30 Alkaline Phosphatase 104 U/L (38-126) 01/30/17 05:30 Troponin I 0.0140 ng/mL (0.00-0.120) 01/29/17 15:22 Total Protein 6.4 G/DL (6.3-8.2) 01/30/17 05:30 Albumin 3.4 g/dL (3.5-5.0) L 01/30/17 05:30 Globulin 3.0 gm/dL (2.2-3.9) 01/30/17 05:30 Albumin/Globulin Ratio 1.1 (1.0-2.1) 01/30/17 05:30 Urine Opiates Screen Negative (NEGATIVE) 01/29/17 01:09 Urine Methadone Screen Negative (NEGATIVE) 01/29/17 01:09 Ur Barbiturates Screen Negative (NEGATIVE) 01/29/17 01:09 Ur Phencyclidine Scrn Negative (NEGATIVE) 01/29/17 01:09 Ur Amphetamines Screen Negative (NEGATIVE) 01/29/17 01:09 U Benzodiazepines Scrn Negative (NEGATIVE) 01/29/17 01:09 U Oth Cocaine Metabols Negative (NEGATIVE) 01/29/17 01:09 U Cannabinoids Screen Negative (NEGATIVE) 01/29/17 01:09 Alcohol, Quantitative 326 mg/dl (0-10) H* 01/28/17 16:11 Discharge Exam - Head Exam Head Exam: NORMAL INSPECTION Discharge Plan - Discharge Medications Prescriptions: Aspirin [Adult Low Dose Aspirin EC] 81 mg PO DAILY #30 tablet.dr - Follow Up Plan Condition: GUARDED Disposition: HOME/ ROUTINE Instructions: Chest Pain (DC), Abuse of Alcohol (DC) Additional Instructions: cleared bhy cardio/pulm. all studies negative. no f/c n/v/d. no cp, dyapnes. final dx-cp, dyspnea, tachycardia, alcohol abuse f/u pmd, rted prn, emds er med rec
[2017-02-01 04:44] LABS: B2 GLYCOPROTEIN I AB(IGA) <9 SAU (<=20); B2 GLYCOPROTEIN I AB(IGG) <9 SGU (<=20); B2 GLYCOPROTEIN I AB(IGM) 9 SMU (<=20); CARDIOLIPIN AB (IGA) <11 APL (<=11); CARDIOLIPIN AB (IGG) <14 GPL (<=14); CARDIOLIPIN AB (IGM) <12 MPL (<=12); PHOSPHATIDYLSERINE AB IGA <20 U/mL (<20); PHOSPHATIDYLSERINE AB IGG <10 U/mL (<10); PHOSPHATIDYLSERINE AB IGM <25 U/mL (<25)
== END 2017-01-30 18:35 | disposition home or self-care (01) ==
LOC: H.ER 15:21 → H.EROBSV 15:39 → INTOOBSV 22:13 → MERGE 22:13 → OBSVTOIN 22:13 → H.ERHOLD 22:20 → H.TEL 23:39
PROVIDERS: ADMIT Family Medicine; ATTEND Family Medicine
DX: R07.9 Chest pain, unspecified (principal); I10 Essential (primary) hypertension; R06.00 Dyspnea, unspecified; R00.0 Tachycardia, unspecified; F10.129 Alcohol abuse with intoxication, unspecified; Y90.8 Blood alcohol level of 240 mg/100 ml or more
CPT/HCPCS: 36415; 71275; 78582; 80053; 81240; 81291; 82948; 84484; 85025; 85300; 85303; 85305; 85306; 85378; 85610; 85730; 86146; 86147; 86148; 93005; 93306; 93970; 96372; 99285; A9524; A9567; G0378; G0480; J1650; J7040; Q9967

== ENCOUNTER 2018-07-21 19:09 | Emergency (ER) | payer MEDICARE ==
[2018-07-21 19:12] VITALS: TEMP 97.8
--- NOTE | 2018-07-21 19:46 | ED PDOC ---
HPI: Psych/Substance Abuse Time Seen by Provider: 07/21/18 19:17 Chief Complaint (Nursing): Alcohol Ingestion Chief Complaint (Provider): ETOH History Per: Patient Additional Complaint(s): 74 yo male, denies PMH, presents to ED via BLS for evaluation of alcohol intoxication. As per EMS, patient was at home and patient's family was concerned he was drinking too much. Pt admits to drinking multiple beers tonight. offers no physical complaints, Past Medical History Reviewed: Historical Data, Nursing Documentation, Vital Signs Vital Signs: Last Vital Signs Temp 97.8 F 07/21/18 19:10 Pulse 106 H 07/21/18 19:10 Resp 16 07/21/18 19:10 BP 152/95 H 07/21/18 19:10 Pulse Ox 96 07/21/18 19:10 - Medical History PMH: No Chronic Diseases Denies: Chronic Kidney Disease - Surgical History Surgical History: Appendectomy - Family History Family History: States: Unknown Family Hx - Living Arrangements Living Arrangements: With Family - Social History Current smoker - smoking cessation education provided: No Alcohol: > 2 Drinks/Day Drugs: Denies - Home Medications Home Medications: Ambulatory Orders Medication Instructions Recorded Pantoprazole Sodium [Protonix] 40 mg PO DAILY #0 ect 07/26/16 Aspirin [Adult Low Dose Aspirin EC] 81 mg PO DAILY #30 tablet. 01/30/17 - Allergies Allergies/Adverse Reactions: Allergies Allergy/AdvReac Type Severity Reaction Status Date / Time No Known Allergies Allergy Verified 07/21/18 19:10 Review of Systems ROS Statement: Except As Marked, All Systems Reviewed And Found Negative Physical Exam - Reviewed Nursing Documentation Reviewed: Yes Vital Signs Reviewed: Yes - Physical Exam Appears: Positive for: Well, Non-toxic, No Acute Distress Head Exam: Positive for: ATRAUMATIC, NORMAL INSPECTION, NORMOCEPHALIC Skin: Positive for: Normal Color, Warm, DRY Eye Exam: Positive for: EOMI, Normal appearance, PERRL ENT: Positive for: Normal ENT Inspection Neck: Positive for: Normal, Painless ROM Cardiovascular/Chest: Positive for: Regular Rate, Rhythm Respiratory: Positive for: CNT, Normal Breath Sounds Gastrointestinal/Abdominal: Positive for: Normal Exam, Soft Back: Positive for: Normal Inspection Extremity: Positive for: Normal ROM Neurologic/Psych: Positive for: Alert, Oriented - Laboratory Results Result Diagrams: 07/21/18 19:40 07/21/18 19:40 - ECG O2 Sat by Pulse Oximetry: 96 Medical Decision Making Medical Decision Making: Labs obtained Pt monitored in ED, ambulated to restroom with steady gait multiple times. Pt offered food tray and declined. Pt did tolerate PO water. Prior to discharge, Pt dressed himself and ambulates with steady gait. speak in clear and full sentences. stable for discharge Disposition - Clinical Impression Clinical Impression: Alcohol dependence - Patient ED Disposition Is Patient to be Admitted: No - Disposition Disposition: Routine/Home Disposition Time: 23:15 Condition: IMPROVED Instructions: Alcohol Abuse and Alcoholism (DC) Forms: [facility] (Korean) Print Language: LITHUANIAN
[2018-07-21 20:24] LABS: BASO # 0.1 K/uL (0.0-0.2); BASO % 0.6 % (0.0-2.0); EOS % 0.1 % (0.0-4.0); HEMOGLOBIN 16.6 g/dL (12.0-18.0); LYMPH # 4.1 K/uL (1.0-4.3); LYMPH % 32.5 % (20.0-40.0); MEAN CORPUSCULAR HEMOGLOBIN 29.8 pg (27.0-31.0); MEAN CORPUSCULAR HGB CONC 34.3 g/dL (33.0-37.0); MEAN PLATELET VOLUME 7.7 fl (7.2-11.7); MONO # 0.8 K/uL (0.0-0.8); MONO % 6.3 % (0.0-10.0); NEUT # 7.6 K/uL (1.8-7.0); NEUT % 60.5 % (50.0-75.0); NRBC % 0.8 % (0.0-0.0); RBC 5.56 Mil/uL (4.40-5.90); RED CELL DISTRIBUTION WIDTH 13.7 % (11.5-14.5); WHITE BLOOD COUNT 12.5 K/uL (4.8-10.8)
[2018-07-21 20:29] LABS: ALB/GLOB RATIO 1.2 (1.0-2.1); ALBUMIN 4.1 g/dL (3.5-5.0); ALT/SGPT 38 U/L (21-72); AST/SGOT 32 U/L (17-59); BLOOD UREA NITROGEN 12 mg/dl (9-20); CALCIUM 8.6 mg/dL (8.4-10.2); GFR NON-AFRICAN AMERICAN > 60
[2018-07-21 23:50] VITALS: BP 143/81; PULSE 76; RESP 15
[2018-07-22 18:10] VITALS: O2SAT 96
== END 2018-07-21 23:50 | disposition home or self-care (01) ==
LOC: EDBD 19:09 → H.ER 19:09
DX: F10.229 Alcohol dependence with intoxication, unspecified (principal)
CPT/HCPCS: 80053; 85025; 99282; G0480